=== PATIENT | female | born 1995 | race American Indian/Alaskan Native ===

== ENCOUNTER 2019-03-15 20:55 | Emergency (ER) | payer SELFPAY ==
[2019-03-15 22:08] VITALS: BP 130/85
--- NOTE | 2019-03-15 22:10 | Event Note ---
ED Screening Note Date of service: 03/15/19 Time: 22:05 ED Screening Note: 24 y o presents with cc of upper and right sided chest pain x 11 am this morning This initial assessment/diagnostic orders/clinical plan/treatment(s) is/are subject to change based on patients health status, clinical progression and re- assessment by fellow clinical providers in the ED. Further treatment and workup at subsequent clinical providers discretion. Patient/guardian urged not to elope from the ED as their condition may be serious if not clinically assessed and managed. Initial orders include:
--- NOTE | 2019-03-16 00:13 | XRay Report ---
CHEST 2 VIEWS INDICATION: pain. COMPARISON: None. FINDINGS: Support devices: None. Heart: Within normal limits. Lungs/Pleura: No acute air space or interstitial disease. No significant pleural effusion. IMPRESSION: No acute findings. Signer Name: Rodolfo Chase MD Signed: 03/16/2019 12:09 AM Workstation Name: [id number]
--- NOTE | 2019-03-16 00:22 | Emergency Department Report ---
ED General Adult HPI - General Chief complaint: Chest Pain Stated complaint: CHEST PAINS, TIGHTNESS Time Seen by Provider: 03/15/19 22:05 Source: patient Mode of arrival: Ambulatory Limitations: No Limitations - History of Present Illness Initial comments: 24-year-old -Pakistani female presents to the emergency room for chest pain and chest tightness that started this morning around 11 AM. Patient also complains of a headache cough is intermittent. Patient reports she has taken Tylenol and ibuprofen without much result. Patient was recently seen here on March 03 and was prescribed a prednisone pack but never filled the prescription. Patient reports that she has not been using her inhaler. She does have a past medical history of asthma. -: This morning Time: 11:00 Location: chest Radiation: non-radiation Severity scale (0 -10): 1 Quality: aching Consistency: intermittent Improves with: none Worsens with: none Associated Symptoms: cough - Related Data Previous Rx's Medication Instructions Recorded Last Taken Type Prednisone [predniSONE 10 mg 10 mg PO .TAPER #1 tab.ds.pk 03/03/19 Unknown Rx (6-Day Pack, 21 Tabs)] Allergies Allergy/AdvReac Type Severity Reaction Status Date / Time No Known Allergies Allergy Unverified 03/03/19 13:47 ED Review of Systems ROS: Stated complaint: CHEST PAINS, TIGHTNESS Other details as noted in HPI Comment: All other systems reviewed and negative Respiratory: cough Neurological: headache ED Past Medical Hx - Past Medical History Previous Medical History?: Yes Hx Asthma: Yes - Surgical History Past Surgical History?: No - Social History Smoking Status: Never Smoker Substance Use Type: None - Medications Home Medications: Home Medications Medication Instructions Recorded Confirmed Last Taken Type Prednisone [predniSONE 10 mg 10 mg PO .TAPER #1 tab.ds.pk 03/03/19 Unknown Rx (6-Day Pack, 21 Tabs)] ED Physical Exam - General Limitations: No Limitations General appearance: alert, in no apparent distress - Head Head exam: Present: atraumatic, normocephalic - Eye Eye exam: Present: normal appearance - ENT ENT exam: Present: mucous membranes moist - Neck Neck exam: Present: normal inspection - Respiratory Respiratory exam: Present: normal lung sounds bilaterally, chest wall tenderness. Absent: respiratory distress - Cardiovascular Cardiovascular Exam: Present: regular rate, normal rhythm. Absent: systolic murmur, diastolic murmur, rubs, gallop - GI/Abdominal GI/Abdominal exam: Present: soft, normal bowel sounds - Extremities Exam Extremities exam: Present: normal inspection - Back Exam Back exam: Present: normal inspection - Neurological Exam Neurological exam: Present: alert, oriented X3 - Psychiatric Psychiatric exam: Present: normal affect, normal mood - Skin Skin exam: Present: warm, dry, intact, normal color. Absent: rash ED Course Vital Signs 03/15/19 22:05 Temperature 98.5 F Pulse Rate 82 Respiratory 18 Rate Blood Pressure 130/85 O2 Sat by Pulse 100 Oximetry ED Medical Decision Making - Radiology Data Radiology results: report reviewed Patient: CONOR FERRER MR#: [id number] : 1995 Acct:[id number] Age/Sex: 24 / F ADM Date: 03/15/19 Loc: ED Attending Dr: Ordering Physician: JELENA MCKEON Date of Service: 03/15/19 Procedure(s): XR chest routine 2V Accession Number(s): [id number] cc: JELENA MCKEON Fluoro Time In Minutes: CHEST 2 VIEWS INDICATION: pain. COMPARISON: None. FINDINGS: Support devices: None. Heart: Within normal limits. Lungs/Pleura: No acute air space or interstitial disease. No significant pleural effusion. IMPRESSION: No acute findings. Signer Name: Rodolfo Chase MD Signed: 03/16/2019 12:09 AM Workstation Name: [id number] Transcribed By: ES Dictated By: Rodolfo Chase MD Electronically Authenticated By: Rodolfo Chase MD Signed Date/Time: 03/16/198 DD/ TD/TT: - Medical Decision Making 24-year-old -Pakistani female presents to the emergency room for chest pain and chest tightness that started this morning around 11 AM. Patient also complains of a headache cough is intermittent. Patient reports she has taken Tylenol and ibuprofen without much result. Patient was recently seen here on March 03 and was prescribed a prednisone pack but never filled the prescription. Patient reports that she has not been using her inhaler. She does have a past medical history of asthma. Initial be given ibuprofen 800 mg by mouth now and prednisone 60 mg by mouth now. Patient is instructed to use her inhaler and to fill her prescription for Medrol Dosepak. Discussed the patient to follow up with [facility] for symptoms persist or gets worse. Critical care attestation.: If time is entered above; I have spent that time in minutes in the direct care of this critically ill patient, excluding procedure time. ED Disposition Clinical Impression: Feeling of chest tightness Disposition: DC-01 TO HOME OR SELFCARE Is pt being admited?: No Does the pt Need Aspirin: No Condition: Stable Instructions: Asthma (ED) Additional Instructions: Please feel your prescription for prednisone that was prescribed to you on 03/03/2019. Please see sugar inhaler as needed for shortness of breathing chest tightness and cough. Follow-up at [facility] for further evaluation and management of your asthma. Takes ibuprofen or Tylenol as needed for headache and chest wall tenderness. Referrals: [facility] [Provider Group] - 3-5 Days Forms: Work/School Release Form(ED)
[2019-03-16] MEDS ORDERED: TYLENOL PO ONE (00:32)
[2019-03-16] MEDS ORDERED: DELTASONE PO ONE (00:32)
== END 2019-03-16 01:30 | disposition home or self-care (01) ==
LOC: ED 20:55
DX: R07.89 Other chest pain (principal); J45.909 Unspecified asthma, uncomplicated
CPT/HCPCS: 71046; J7512

== ENCOUNTER 2019-04-16 20:55 | Emergency (ER) | payer SELFPAY ==
[2019-04-16 21:02] VITALS: BP 119/78
--- NOTE | 2019-04-16 21:42 | Event Note ---
ED Screening Note Date of service: 04/16/19 Time: 21:38 ED Screening Note: This is a 24 y.o. F. that presents to the ER with upper abdominal pain for 2 days. + N/D LMP 03/23/2019 This initial assessment/diagnostic orders/clinical plan/treatment(s) is/are subject to change based on patients health status, clinical progression and re- assessment by fellow clinical providers in the ED. Further treatment and workup at subsequent clinical providers discretion. Patient/guardian urged not to elope from the ED as their condition may be serious if not clinically assessed and managed. Initial orders include: Labs and CT of abdomen and pelvis
[2019-04-16 22:22] LABS: Bacteria,Urine 1+ /HPF (Negative); Bilirubin,Urine NEG (Negative); Blood,Urine NEG (Negative); Color,Urine Yellow (Yellow); Mucus,Urine 2+ /HPF; Protein,Urine <15 mg/dL mg/dL (Negative); Urobilinogen,Urine < 2.0 mg/dL (<2.0); WBC,Urine < 1.0 /HPF (0.0-6.0)
[2019-04-16 22:57] LABS: Basophils % (Auto) 0.9 % (0.0-1.8); Eosinophils # (Auto) 0.2 K/mm3 (0.0-0.4); Eosinophils % (Auto) 4.3 % (0.0-4.3); Hematocrit 38.6 % (30.3-42.9); Hemoglobin 12.2 gm/dl (10.1-14.3); Lymphocytes # (Auto) 2.2 K/mm3 (1.2-5.4); Lymphocytes % (Auto) 39.5 % (13.4-35.0); Mean Corpuscular HGB Conc 32 % (30-34); Mean Corpuscular Volume 86 fl (79-97); Monocytes # (Auto) 0.3 K/mm3 (0.0-0.8); Monocytes % (Auto) 5.4 % (0.0-7.3); Platelet Count 308 K/mm3 (140-440)
[2019-04-16 23:14] LABS: Alanine Aminotransferase 15 units/L (7-56); Albumin 4.4 g/dL (3.9-5); BUN/Creatinine Ratio 14; Blood Urea Nitrogen 11 mg/dL (7-17); Calcium 9.2 mg/dL (8.4-10.2); Hemolysis Index 7
--- NOTE | 2019-04-17 00:19 | Cat Scan Report ---
CT ABDOMEN AND PELVIS WITH CONTRAST INDICATION / CLINICAL INFORMATION: Upper abdominal pain. TECHNIQUE: Axial CT images were obtained through the abdomen and pelvis after 100 mL Omnipaque [address] scans at this location are performed using CT dose reduction for ALARA by means of automated exposure control. COMPARISON: None available. FINDINGS: LOWER CHEST: No significant abnormality. LIVER: No significant abnormality. GALLBLADDER: Contracted. BILE DUCTS: No significant abnormality. PANCREAS: No significant abnormality. SPLEEN: No significant abnormality. ADRENALS: No significant abnormality. RIGHT KIDNEY and URETER: No significant abnormality. LEFT KIDNEY and URETER: No significant abnormality. STOMACH and SMALL BOWEL: Moderate amount of food material in the stomach. Small amount of fluid in th e mid to distal small bowel without significant dilation. Distal small bowel is mildly thickened and edematous. COLON: Small amount of semisolid fecal material and fluid throughout the colon and rectum. APPENDIX: The appendix is upper normal size with an appendicolith at the tip of the appendix. There i s gas within the appendix, and there is no periappendiceal inflammation. PERITONEUM: No free fluid. No free air. No fluid collection. LYMPH NODES: No significant adenopathy. AORTA and ARTERIES: No significant abnormality. IVC and VEINS: No significant abnormality. URINARY BLADDER: No significant abnormality. REPRODUCTIVE ORGANS: 1.7 cm right adnexal cyst. ADDITIONAL FINDINGS: None. SKELETAL SYSTEM: No significant abnormality. IMPRESSION: 1. Small amount of fluid in the distal small bowel with mild thickening and edema. Small amount of fl uid and semisolid stool in the colon. This finding could represent enteritis. 2. Appendicolith in the tip of the appendix but no CT evidence for acute appendicitis. Signer Name: Sammi Martinez MD Signed: 04/17/2019 12:15 AM Workstation Name: [id number]
[2019-04-17] MEDS ORDERED: ONDANSETRON 4 MG/2 ML INJ IV ONE (00:25)
[2019-04-17] MEDS ORDERED: LOPERAMIDE 2 MG CAP PO ONE (00:25)
--- NOTE | 2019-04-17 00:30 | Emergency Department Report ---
ED N/V/D HPI - General Chief complaint: Abdominal Pain Stated complaint: ABD PAIN, N, D Time Seen by Provider: 04/16/19 21:38 Source: patient Mode of arrival: Ambulatory Limitations: No Limitations - History of Present Illness Initial comments: 24-year-old -[place] female presents to the emergency room for abdominal pain with nausea and diarrhea 2 days. Patient reports that his daily and girlfriend has had the same symptoms. Patient's concern that she may contaminate others as she works in the [employer] industry. Patient reports her last menstrual. Was on 03/23/2019. Patient reports no past medical history currently takes no medications on a daily basis and has no known drug allergies. MD complaint: nausea, diarrhea Onset/Timin -: days(s) Description of Diarrhea: water Associated Abdominal Pain: Yes Location: diffuse Radiation: none Severity: moderate Pain Scale: 5 Quality: cramping Consistency: intermittent Improves with: none Worsens with: none Context: sick contacts Associated Symptoms: denies: chest pain, cough, diaphoresis, fever/chills, h eadaches, loss of appetite - Related Data Previous Rx's Medication Instructions Recorded Last Taken Type Prednisone [predniSONE 10 mg 10 mg PO .TAPER #1 tab.ds.pk 03/03/19 Unknown Rx (6-Day Pack, 21 Tabs)] Ondansetron [Zofran Odt] 4 mg PO Q8HR #12 tab.rapdis 04/17/19 Unknown Rx Allergies Allergy/AdvReac Type Severity Reaction Status Date / Time No Known Allergies Allergy Unverified 03/03/19 13:47 ED Review of Systems ROS: Stated complaint: ABD PAIN, N, D Other details as noted in HPI Comment: All other systems reviewed and negative ED Past Medical Hx - Past Medical History Previous Medical History?: Yes Hx Asthma: Yes - Surgical History Past Surgical History?: No - Social History Smoking Status: Never Smoker Substance Use Type: None - Medications Home Medications: Home Medications Medication Instructions Recorded Confirmed Last Taken Type Prednisone [predniSONE 10 mg 10 mg PO .TAPER #1 tab.ds.pk 03/03/19 Unknown Rx (6-Day Pack, 21 Tabs)] Ondansetron [Zofran Odt] 4 mg PO Q8HR #12 tab.rapdis 04/17/19 Unknown Rx ED Physical Exam - General Limitations: No Limitations General appearance: alert, in no apparent distress - Head Head exam: Present: atraumatic, normocephalic - Eye Eye exam: Present: normal appearance - ENT ENT exam: Present: mucous membranes moist - Neck Neck exam: Present: normal inspection - Respiratory Respiratory exam: Present: normal lung sounds bilaterally. Absent: respiratory distress - Cardiovascular Cardiovascular Exam: Present: regular rate, normal rhythm. Absent: systolic murmur, diastolic murmur, rubs, gallop - GI/Abdominal GI/Abdominal exam: Present: soft, normal bowel sounds - Extremities Exam Extremities exam: Present: normal inspection - Back Exam Back exam: Present: normal inspection - Neurological Exam Neurological exam: Present: alert, oriented X3, normal gait - Psychiatric Psychiatric exam: Present: normal affect, normal mood - Skin Skin exam: Present: warm, dry, intact, normal color. Absent: rash ED Course Vital Signs 04/16/19 04/16/19 21:00 21:41 Temperature 98.1 F 98.1 F Pulse Rate 99 H 96 H Respiratory 18 18 Rate Blood Pressure 119/78 119/78 O2 Sat by Pulse 98 100 Oximetry ED Medical Decision Making - Lab Data Result diagrams: 04/16/19 22:18 04/16/19 22:18 - Radiology Data Radiology results: report reviewed Patient: CONOR FERRER MR#: [id number] : 1995 Acct:[id number] Age/Sex: 24 / F ADM Date: 04/16/19 Loc: ED Attending Dr: Ordering Physician: HARSH SHEETS Date of Service: 04/16/19 Procedure(s): CT abdomen pelvis w con Accession Number(s): [id number] cc: HARSH SHEETS CT ABDOMEN AND PELVIS WITH CONTRAST INDICATION / CLINICAL INFORMATION: Upper abdominal pain. TECHNIQUE: Axial CT images were obtained through the abdomen and pelvis after 100 mL Omnipaque [address] scans at this location are performed using CT dose reduction for ALARA by means of automated exposure control. COMPARISON: None available. FINDINGS: LOWER CHEST: No significant abnormality. LIVER: No significant abnormality. GALLBLADDER: Contracted. BILE DUCTS: No significant abnormality. PANCREAS: No significant abnormality. SPLEEN: No significant abnormality. ADRENALS: No significant abnormality. RIGHT KIDNEY and URETER: No significant abnormality. LEFT KIDNEY and URETER: No significant abnormality. STOMACH and SMALL BOWEL: Moderate amount of food material in the stomach. Small amount of fluid in the mid to distal small bowel without significant dilation. Distal small bowel is mildly thickened and edematous. COLON: Small amount of semisolid fecal material and fluid throughout the colon and rectum. APPENDIX: The appendix is upper normal size with an appendicolith at the tip of the appendix. There is gas within the appendix, and there is no periappendiceal inflammation. PERITONEUM: No free fluid. No free air. No fluid collection. LYMPH NODES: No significant adenopathy. AORTA and ARTERIES: No significant abnormality. IVC and VEINS: No significant abnormality. URINARY BLADDER: No significant abnormality. REPRODUCTIVE ORGANS: 1.7 cm right adnexal cyst. ADDITIONAL FINDINGS: None. SKELETAL SYSTEM: No significant abnormality. IMPRESSION: 1. Small amount of fluid in the distal small bowel with mild thickening and edema. Small amount of fluid and semisolid stool in the colon. This finding could represent enteritis. 2. Appendicolith in the tip of the appendix but no CT evidence for acute appendicitis. Signer Name: Sammi Martinez MD Signed: 04/17/2019 12:15 AM Workstation Name: [email or web address] [id number] [id number] [id number] Transcribed By: DT Dictated By: Juan Martinez MD Electronically Authenticated By: Juan Martinez MD Signed Date/Time: 04/17/19 0015 DD/ 0005 TD/TT: - Medical Decision Making 24-year-old -[place] female presents to the emergency room for abdominal pain with nausea and diarrhea 2 days. Patient reports that his daily and girlfriend has had the same symptoms. Patient's concern that she may contaminate others as she works in the [employer] industry. Patient reports her last menstrual. Was on 03/23/2019. Patient reports no past medical history currently takes no medications on a daily basis and has no known drug allergies. Critical care attestation.: If time is entered above; I have spent that time in minutes in the direct care of this critically ill patient, excluding procedure time. ED Disposition Clinical Impression: Enteritis Disposition: DC-01 TO HOME OR SELFCARE Is pt being admited?: No Does the pt Need Aspirin: No Condition: Stable Instructions: Abdominal Pain (ED) Prescriptions: Ondansetron [Zofran Odt] 4 mg PO Q8HR #12 tab.rapdis Referrals: PRIMARY CARE, [Primary Care Provider] - 3-5 Days [facility] [Provider Group] - 3-5 Days Forms: Work/School Release Form(ED)
== END 2019-04-17 00:55 | disposition home or self-care (01) ==
LOC: ED 20:55
DX: K52.9 Noninfective gastroenteritis and colitis, unspecified (principal); J45.909 Unspecified asthma, uncomplicated
CPT/HCPCS: 36415; 74177; 80053; 81001; 83690; 84703; 85025; 96374; 99284; J2405; Q9967

== ENCOUNTER 2019-04-19 01:32 | Emergency (ER) | payer OTHER ==
[2019-04-19 02:25] LABS: Bilirubin,Urine NEG (Negative); Blood,Urine NEG (Negative); Color,Urine Yellow (Yellow); Mucus,Urine 1+ /HPF; Protein,Urine <15 mg/dL mg/dL (Negative); Urobilinogen,Urine < 2.0 mg/dL (<2.0); WBC,Urine < 1.0 /HPF (0.0-6.0)
[2019-04-19 02:33] LABS: Basophils % (Auto) 0.6 % (0.0-1.8); Eosinophils # (Auto) 0.2 K/mm3 (0.0-0.4); Eosinophils % (Auto) 3.6 % (0.0-4.3); Hematocrit 35.9 % (30.3-42.9); Hemoglobin 11.9 gm/dl (10.1-14.3); Lymphocytes # (Auto) 2.6 K/mm3 (1.2-5.4); Lymphocytes % (Auto) 41.4 % (13.4-35.0); Mean Corpuscular HGB Conc 33 % (30-34); Mean Corpuscular Volume 85 fl (79-97); Monocytes # (Auto) 0.6 K/mm3 (0.0-0.8); Monocytes % (Auto) 8.9 % (0.0-7.3); Platelet Count 294 K/mm3 (140-440); Red Blood Count 4.22 M/mm3 (3.65-5.03); Red Cell Distribution Width 13.8 % (13.2-15.2)
[2019-04-19 02:45] LABS: HCG Qualitative,Urine Negative (Negative)
[2019-04-19 02:54] LABS: Alanine Aminotransferase 14 units/L (7-56); Albumin 4.5 g/dL (3.9-5); BUN/Creatinine Ratio 21; Blood Urea Nitrogen 15 mg/dL (7-17); Calcium 9.2 mg/dL (8.4-10.2); Hemolysis Index 6
[2019-04-19] MEDS ORDERED: SODIUM CHLORIDE 0.9% 1000 ML 1,000 ML IV ONE (03:36)
[2019-04-19] MEDS ORDERED: DICYCLOMINE 20 MG/2 ML INJ IM ONE (03:36)
[2019-04-19] MEDS ORDERED: ONDANSETRON 4 MG/2 ML INJ IV ONE (03:36)
[2019-04-19] MEDS ORDERED: ONDANSETRON 4 MG/2 ML INJ ONE (03:36)
[2019-04-19] MEDS ORDERED: PANTOPRAZOLE 40 MG INJ IV ONE (03:36)
[2019-04-19] MEDS ORDERED: ONDANSETRON 4 MG ODT TAB ONE (04:32)
--- NOTE | 2019-04-19 05:21 | Emergency Department Report ---
ED N/V/D HPI - General Chief complaint: Abdominal Pain Stated complaint: STOMACH PAIN DIARRHEA LUMP ON BUTTOCK Time Seen by Provider: 04/19/19 03:09 Source: patient Mode of arrival: Ambulatory Limitations: No Limitations - History of Present Illness Initial comments: Patient is a 24-year-old female presents to emergency room with complaints of nausea and diarrhea that began 2-3 days ago. she has associated mild generalized abdominal cramping. She states initially she had some vomiting couple days ago but that has since resolved but beginning at 7. P.m. tonight she began having a few episodes of diarrhea. Patient denies any recent travel, recent camping, recent antibiotics. She denies any fever, chills, blood or pus in the stool. Patient states that she has had sick contacts at home with the same symptoms. She states her only past medical history is asthma. Eyes any allergies to medications. - Related Data Previous Rx's Medication Instructions Recorded Last Taken Type Prednisone [predniSONE 10 mg 10 mg PO .TAPER #1 tab.ds.pk 03/03/19 Unknown Rx (6-Day Pack, 21 Tabs)] Ondansetron [Zofran Odt] 4 mg PO Q8HR #12 tab.rapdis 04/17/19 Unknown Rx Dicyclomine [Bentyl] 20 mg PO QID PRN #14 tablet 04/19/19 Unknown Rx Famotidine [Pepcid] 40 mg PO QHS #10 tablet 04/19/19 Unknown Rx Allergies Allergy/AdvReac Type Severity Reaction Status Date / Time No Known Allergies Allergy Verified 04/19/19 04:32 ED Review of Systems ROS: Stated complaint: STOMACH PAIN DIARRHEA LUMP ON BUTTOCK Other details as noted in HPI Comment: All other systems reviewed and negative ED Past Medical Hx - Past Medical History Previous Medical History?: Yes Hx Asthma: Yes - Surgical History Past Surgical History?: No - Social History Smoking Status: Never Smoker Substance Use Type: None - Medications Home Medications: Home Medications Medication Instructions Recorded Confirmed Last Taken Type Prednisone [predniSONE 10 mg 10 mg PO .TAPER #1 tab.ds.pk 03/03/19 Unknown Rx (6-Day Pack, 21 Tabs)] Ondansetron [Zofran Odt] 4 mg PO Q8HR #12 tab.rapdis 04/17/19 Unknown Rx Dicyclomine [Bentyl] 20 mg PO QID PRN #14 tablet 04/19/19 Unknown Rx Famotidine [Pepcid] 40 mg PO QHS #10 tablet 04/19/19 Unknown Rx ED Physical Exam - General Limitations: No Limitations General appearance: alert, in no apparent distress - Head Head exam: Present: atraumatic, normocephalic - Eye Eye exam: Present: normal appearance - ENT ENT exam: Present: mucous membranes moist - Respiratory Respiratory exam: Present: normal lung sounds bilaterally. Absent: respiratory distress, wheezes, rales, rhonchi, stridor, chest wall tenderness, accessory muscle use, decreased breath sounds, prolonged expiratory - Cardiovascular Cardiovascular Exam: Present: regular rate, normal rhythm, normal heart sounds. Absent: systolic murmur, diastolic murmur, rubs, gallop - GI/Abdominal GI/Abdominal exam: Present: soft, normal bowel sounds. Absent: distended, tenderness, guarding, rebound, rigid - Neurological Exam Neurological exam: Present: alert, oriented X3 - Psychiatric Psychiatric exam: Present: normal affect, normal mood - Skin Skin exam: Present: warm, dry, intact ED Course Vital Signs 04/19/19 04/19/19 01:34 07:10 Temperature 98.4 F Pulse Rate 93 H 94 H Respiratory 18 16 Rate Blood Pressure 137/97 Blood Pressure 125/80 [Right] O2 Sat by Pulse 100 100 Oximetry ED Medical Decision Making - Lab Data Result diagrams: 04/19/19 02:18 04/19/19 02:08 - Radiology Data Radiology results: report reviewed CT ABDOMEN AND PELVIS WITH CONTRAST INDICATION / CLINICAL INFORMATION: Upper abdominal pain. TECHNIQUE: Axial CT images were obtained through the abdomen and pelvis after 100 mL Omnipaque [address] scans at this location are performed using CT dose reduction for ALARA by means of automated exposure control. COMPARISON: None available. FINDINGS: LOWER CHEST: No significant abnormality. LIVER: No significant abnormality. GALLBLADDER: Contracted. BILE DUCTS: No significant abnormality. PANCREAS: No significant abnormality. SPLEEN: No significant abnormality. ADRENALS: No significant abnormality. RIGHT KIDNEY and URETER: No significant abnormality. LEFT KIDNEY and URETER: No significant abnormality. STOMACH and SMALL BOWEL: Moderate amount of food material in the stomach. Small amount of fluid in the mid to distal small bowel without significant dilation. Distal small bowel is mildly thickened and edematous. COLON: Small amount of semisolid fecal material and fluid throughout the colon and rectum. APPENDIX: The appendix is upper normal size with an appendicolith at the tip of the appendix. There is gas within the appendix, and there is no periappendiceal inflammation. PERITONEUM: No free fluid. No free air. No fluid collection. LYMPH NODES: No significant adenopathy. AORTA and ARTERIES: No significant abnormality. IVC and VEINS: No significant abnormality. URINARY BLADDER: No significant abnormality. REPRODUCTIVE ORGANS: 1.7 cm right adnexal cyst. ADDITIONAL FINDINGS: None. SKELETAL SYSTEM: No significant abnormality. IMPRESSION: 1. Small amount of fluid in the distal small bowel with mild thickening and edema. Small amount of fluid and semisolid stool in the colon. This finding could represent enteritis. 2. Appendicolith in the tip of the appendix but no CT evidence for acute appendicitis. Signer Name: Sammi Martinez MD Signed: 04/17/2019 12:15 AM Workstation Name: [employer] Transcribed By: DT Dictated By: Juan Martinez MD Electronically Authenticated By: Juan Martinez MD Signed Date/Time: 04/17/19 0015 - Medical Decision Making Patient is a 24-year-old female presents to emergency room with complaints of nausea and diarrhea that began 2-3 days ago. she has associated mild generalized abdominal cramping. She states initially she had some vomiting couple days ago but that has since resolved but beginning at 7. P.m. tonight she began having a few episodes of diarrhea. Patient denies any recent travel, recent camping, recent antibiotics. She denies any fever, chills, blood or pus in the stool. Patient states that she has had sick contacts at home with the same symptoms. She states her only past medical history is asthma. denies any allergies to medications. vitals are stable. pt did not want a IV placed. pt given bentyl and zofran. pt had no further episodes of N/V/D. pt was able to tolerate PO intake while in the ED. given prescription for bentyl and pepcid. already has a prescription for zofran. pt had a CT abd/pelvis IV contrast and showed enteritis while in the ED on 04/17/19. advised pt to please take medication as prescribed. Please increase your fluid intake. please eat a very bland diet for the next several days. labs are normal. UA is normal. urine preg is negative. follow up with her primary care doctor in the next 2-3 days if you do not have primary care doctor one is listed below. return to the emergency room for new or worsening symptoms. Critical care attestation.: If time is entered above; I have spent that time in minutes in the direct care of this critically ill patient, excluding procedure time. ED Disposition Clinical Impression: Nausea, Abdominal cramping Diarrhea Qualifiers: Diarrhea type: unspecified type Qualified Code(s): R19.7 - Diarrhea, unspecified Disposition: TO HOME OR SELFCARE Is pt being admited?: No Does the pt Need Aspirin: No Condition: Stable Instructions: Gastroenteritis (ED) Additional Instructions: please take medication as prescribed. Please increase your fluid intake. please eat a very bland diet for the next several days. follow up with her primary care doctor in the next 2-3 days if you do not have primary care doctor one is listed below. return to the emergency room for new or worsening symptoms. Prescriptions: Famotidine [Pepcid] 40 mg PO QHS #10 tablet Dicyclomine [Bentyl] 20 mg PO QID PRN #14 tablet PRN Reason: cramping Referrals: [facility] [Provider Group] - 2-3 Days Forms: Work/School Release Form(ED) Time of Disposition: 05:18 Print Language: ARMENIAN
[2019-04-19 07:11] VITALS: BP 125/80
== END 2019-04-19 06:05 | disposition home or self-care (01) ==
LOC: ED 01:32
DX: R11.2 Nausea with vomiting, unspecified (principal); R19.7 Diarrhea, unspecified; R10.84 Generalized abdominal pain; J45.909 Unspecified asthma, uncomplicated; Z79.899 Other long term (current) drug therapy
CPT/HCPCS: 36415; 80053; 81001; 81025; 83690; 85025; 96372; 96374; 99283; J0500; J2405; J7030; Q0162

== ENCOUNTER 2019-09-07 10:48 | Emergency (ER) | payer SELFPAY ==
[2019-09-07 11:07] VITALS: BP 116/76
== END 2019-09-07 23:19 | disposition left against medical advice (07) ==
LOC: ED 10:48
DX: R10.9 Unspecified abdominal pain (principal); Z53.21 Procedure and treatment not carried out due to patient leaving prior to being seen by health care provider